=== PATIENT | female | born 1960 | race Caucasian/White ===

== ENCOUNTER 2017-11-17 04:17 | Emergency (ER) | payer OTHER ==
[~2017-11-17 04:17] MED LIST: AMLODIPINE10 MG PO; CLONAZEPAM0.5 MG PO; CRESTOR10 MG PO; FLUOXETINE HYDR10 MG PO; HYZAAR 25 MG-101 TAB PO; NAMENDA10 MG PO
[2017-11-17 04:25] VITALS: BP 130/53
--- NOTE | 2017-11-17 06:01 | ED EAR COMPLAINT ---
History of Present Illness General Chief Complaint: Ear Complaints Stated Complaint: LEFT EAR BLEEDING Source: patient Exam Limitations: no limitations Vital Signs & Intake/Output Vital Signs & Intake/Output Vital Signs Date Time Temp Pulse Resp B/P B/P Pulse O2 O2 Flow FiO2 Mean Ox Delivery Rate 11/17 0425 98.0 57 18 130/53 98 Room Air Allergies Coded Allergies: MDX - Nkda - No Known Drug Allergie (NKDA - NO KNOWN DRUG ALLERGIES) (12/10/14) Reconcile Medications Amlodipine Besylate (Amlodipine) 10 MG TAB 1 TAB PO DAILY HEART (Reported) Clonazepam 0.5 MG TAB 1 TAB PO DAILY PRN ANXIETY (Reported) Fluoxetine Hydrochloride 10 MG CAP 1 TAB PO DAILY MENTAL HEALTH (Reported) LOSARTAN/HYDROCHLOROTHIAZIDE (Hyzaar 100-25 Tablet) 1 TAB TAB 1 TAB PO DAILY HEART (Reported) Memantine Hydrochloride (Namenda) 10 MG TAB 1 TAB PO BID DEMENTIA (Reported) Rosuvastatin Calcium (Crestor) 10 MG TAB 10 MG PO DAILY CHOLESTEROL (Reported ) Triage Note: PER EMS PT CLEANING L EAR AFTER SHOWER AND SAW BLOOD GOT VERY NERVOUS AND CAME TO ED Triage Nurses Notes Reviewed? yes HPI: Patient presents for evaluation of left ear bleeding. Patient states that after taking a shower last night she used a Q-tip to clean water out of the left ear. She felt pain and a little bit of bleeding. Later on that night she awoke with a near fainting episode sweatiness and dizziness and the bleeding returned. Past History Travel History Traveled to [place] past 21 day No Medical History Any Pertinent Medical History? see below for history Neurological: NONE EENT: NONE Cardiovascular: hypertension, hyperlipidemia Respiratory: NONE Gastrointestinal: elevated lft's Hepatic: NONE Renal: NONE Musculoskeletal: NONE Psychiatric: depression, ocd Endocrine: NONE Blood Disorders: NONE Cancer(s): NONE RADIOLOGY SPECIALIST/Reproductive: NONE Surgical History Surgical History: N Psychosocial History What is your primary language Uzbek Tobacco Use: Never used Family History Hx Contributory? No Review of Systems Review of Systems Constitutional: Reports: no symptoms. EENTM: Reports: see HPI. Respiratory: Reports: no symptoms. Cardiovascular: Reports: no symptoms. GI: Reports: no symptoms. Genitourinary: Reports: no symptoms. Musculoskeletal: Reports: no symptoms. Skin: Reports: no symptoms. Neurological/Psychological: Reports: no symptoms. Hematologic/Endocrine: Reports: no symptoms. Immunologic/Allergic: Reports: no symptoms. All Other Systems: Reviewed and Negative Physical Exam Physical Exam Ears: Left: bleeding. Comments: Gen.: Well-nourished, well-developed, no acute respiratory distress. Head: Normocephalic, atraumatic. Eyes: Normal inspection bilaterally Ears: Normal inspection right ear,Left ear canal: Red blood inferiorly occluding the inferior hemisphere of the tympanic membrane. The visible tympanic membrane is normal. Nose: Normal inspection Throat/mouth : Moist mucosa Neck: Supple, full range of motion, no goiter Lungs: Quiet respirations Back: Normal range of motion Extremities: Normal range of motion grossly, no cyanosis clubbing or edema of the upper extremities Neurologic: Cranial nerves grossly intact, speech is clear Skin: warm and dry Psychiatric: Calm, cooperative, no apparent delusions or hallucinations Patient's case discussed with [facility] for ENT. Patient to be evaluated in their office in the morning. Progress Differential Diagnoses I considered the following diagnoses in my evaluation of the patient: Tympanic membrane trauma, ear canal trauma, otitis media, otitis externa Plan of Care: ENT evaluation Initial ED EKG: none Departure Departure Disposition: HOME OR SELF CARE Condition: Stable Clinical Impression Primary Impression: Tympanic membrane rupture Qualifiers: Laterality: left Qualified Code: H72.92 - Unspecified perforation of tympanic membrane, left ear Referrals: Felice WIN,Joey Gambino (PCP/Family) Danny Murguia MD Additional Instructions: Follow-up with Dr. murguia office-call the office at 8:30 this morning to arrange for an appointment. You should be seen today. Return if any concerns or sudden worsening. Departure Forms: Customer Survey General Discharge Information
== END 2017-11-17 06:09 ==
LOC: ERH 04:17
DX: H72.92 Unspecified perforation of tympanic membrane, left ear (principal)